=== PATIENT | male | born 1955 | race Caucasian/White ===

== ENCOUNTER 2021-01-07 10:44 | Emergency (ER) | payer OTHER ==
[~2021-01-07] VITALS: Ht 180.3 cm; Wt 106.6 kg
[2021-01-07 12:53] LABS: BASOPHILS # (AUTO) 0.1 /CMM (0.0-0.2); BASOPHILS % (AUTO) 1.1 % (0.0-2.0); EOSINOPHILS % (AUTO) 2.8 % (0.0-6.0); HEMATOCRIT 26 % (39-51); HEMOGLOBIN 8.9 g/dL (13.5-17.5); LYMPHOCYTES # (AUTO) 1.1 /CMM (0.8-4.8); LYMPHOCYTES % (AUTO) 19.7 % (20.0-44.0); MEAN CORPUSCULAR HGB CONC 34 g/dl (31.0-36.0); MEAN CORPUSCULAR VOLUME 88 fL (80-96); MONOCYTES # (AUTO) 0.4 /CMM (0.1-1.30); MONOCYTES % (AUTO) 7.4 % (2.0-12.0); PLATELET COUNT (AUTO) 187 /CMM (150-450); RED BLOOD CELL COUNT(AUTO) 2.96 MIL/uL (4.5-6.0); WHITE BLOOD COUNT (AUTO) 5.8 K/uL (4.3-11.0)
[2021-01-07 13:01] LABS: CALCIUM, SERUM 8.5 mg/dL (8.5-10.1); CARBON DIOXIDE 23 mmol/L (21-32); CHLORIDE 109 mmol/L (98-107); CREATININE 4.2 mg/dL (0.6-1.3); GLUCOSE 194 mg/dL (74-106); POTASSIUM 5.5 mmol/L (3.5-5.1); SODIUM SERUM 140 mmol/L (136-145); UREA NITROGEN, BLOOD 49 mg/dL (7-18)
[2021-01-07 13:12] LABS: ALANINE AMINOTRANSFERASE 17 U/L (12-78); ALBUMIN 3.1 g/dL (3.4-5.0); ALKALINE PHOSPHATASE 59 U/L (46-116); ASPARTATE AMINOTRANSFERASE 15 U/L (15-37); B-TYPE NATRIURETIC PEPTIDE 7517 PG/ML (0-125); BILIRUBIN,DIRECT 0.1 mg/dL (0.0-0.2); BILIRUBIN,TOTAL 0.4 mg/dL (0.2-1.0); TOTAL PROTEIN, SERUM 6.9 g/dL (6.4-8.2)
[2021-01-07] MEDS ORDERED: FUROSEMIDE 40 MG/4 ML VIAL IV ONE (14:00)
[2021-01-07] MEDS ORDERED: OMEG-220 PO (14:01)
[2021-01-07] MEDS ORDERED: METO25TA4 PO (14:01)
[2021-01-07] MEDS ORDERED: SILV50CR32 TP (14:01)
[2021-01-07] MEDS ORDERED: ATOR40TA PO (14:01)
[2021-01-07] MEDS ORDERED: FOLI0.8T23 PO (14:01)
[2021-01-07] MEDS ORDERED: DOXY100C2 PO (14:01)
[2021-01-07] MEDS ORDERED: HYDR-4077 PO (14:01)
[2021-01-07] MEDS ORDERED: LOSA50TA39 PO (14:01)
[2021-01-07] MEDS ORDERED: FERR325T23 PO (14:01)
[2021-01-07] MEDS ORDERED: MONT10TA22 PO (14:01)
[2021-01-07] MEDS ORDERED: FURO40TA5 PO (14:01)
[2021-01-07] MEDS ORDERED: ERGO500014 PO (14:01)
[2021-01-07] MEDS ORDERED: OMEP40CA13 PO (14:01)
[2021-01-07] MEDS ORDERED: NIFE60TA73 PO (14:01)
[2021-01-07] MEDS ORDERED: PRED5DRO16 RIGHTEYE (14:01)
[2021-01-07] MEDS ORDERED: FUROSEMIDE 40 MG/4 ML VIAL ONE (15:24)
[2021-01-07 17:46] VITALS: BP 166/93
== END 2021-01-07 18:27 | disposition short-term general hospital (02) ==
LOC: ER 10:49
DX: J81.1 Chronic pulmonary edema (principal); R06.02 Shortness of breath; Z20.822 Contact with and (suspected) exposure to COVID-19; I13.10 Hypertensive heart and chronic kidney disease without heart failure, with stage 1 through stage 4 chronic kidney disease, or unspecified chronic kidney disease; N18.9 Chronic kidney disease, unspecified; E11.22 Type 2 diabetes mellitus with diabetic chronic kidney disease
CPT/HCPCS: 36415; 71045; 80048; 80076; 83880; 84484; 85025; 87426; 93005; 96374; 99285; C9803; J1940